=== PATIENT | female | born 1970 | race Caucasian/White ===

== ENCOUNTER 2024-07-20 09:35 | Emergency (ER) | payer BC ==
[~2024-07-20] VITALS: Ht 175.3 cm; Wt 74.4 kg
[2024-07-20 10:30] VITALS: BP 115/69; PULSE 71; RESP 16; TEMP 98.2; O2SAT 99
[2024-07-20] MEDS: TETanus/Pertussis (Acell)/Diphther VAC/PF (Tdap-Adult) 0.5ml syringe IMVAC ONE (10:45)
== END 2024-07-20 11:30 | disposition home or self-care (01) ==
LOC: ER 09:36
DX: S01.81XA Laceration without foreign body of other part of head, initial encounter (principal); W22.09XA Striking against other stationary object, initial encounter; Y93.89 Activity, other specified; Y92.89 Other specified places as the place of occurrence of the external cause; Y99.8 Other external cause status
CPT/HCPCS: 12011; 70450; 90471; 90715; 99285; A6449